=== PATIENT | male | born 1960 | race Caucasian/White ===

== ENCOUNTER 2024-05-26 08:40 | Inpatient (IN) ==
[2024-05-26] MEDS: 0.9 % SODIUM CHLORIDE 1,000 ML IV ONE (09:16)
[2024-05-26 09:43] LABS: ALT/SGPT < 5 U/L (<40); AST/SGOT 14 U/L (<40); Albumin/Globulin Ratio 1.1 (1.0-2.3); Alkaline Phosphatase 81 U/L (39-117); Bilirubin,Total 0.5 mg/dL (0.1-1.0); Blood Urea Nitrogen 22 mg/dL (8-23); Calcium 10.2 mg/dL (8.6-10.4); Carbon Dioxide 28 mmol/L (22-30); Chloride 97 mmol/L (96-108); Globulin 3.5 gm/dL (2.2-3.7); Glomerular Filtration Rate 78; Glucose 128 mg/dL (70-105); Potassium 3.5 mmol/L (3.3-5.1); Sodium 137 mmol/L (133-145)
[2024-05-26 09:44] LABS: Basophils # (Auto) 0.01 K/mcL (0.00-0.30); Basophils % (Auto) 0.1 % (0.0-2.0); Eosinophils # (Auto) 0.04 K/mcL (0.00-0.70); Eosinophils % (Auto) 0.4 % (0.0-7.0); Hematocrit 35.3 % (40.1-51.0); Hemoglobin 11.6 g/dL (13.7-17.5); Lymphocytes # (Auto) 1.04 K/mcL (1.50-4.80); Lymphocytes % (Auto) 11.2 % (15.5-49.0); Mean Cell Volume 90.3 fL (80.0-100.0); Mean Corpuscular HGB Conc 32.9 g/dL (31.0-36.0); Mean Platelet Volume 10.1 fL (8.8-12.5); Monocytes # (Auto) 0.47 K/mcL (0.10-0.90); Monocytes % (Auto) 5.1 % (1.0-12.0); Neutrophils % (Auto) 83.1 % (38.0-78.0); Platelet Count 377 K/mcL (140-440); RBC 3.91 M/mcL (4.63-6.08); Red Cell Distribution Width 13.9 % (11.5-14.5); WBC 9.3 K/mcL (4.5-11.0)
[2024-05-26] MEDS: HEPARIN 5,000 UNIT/ML VIAL IV ONE (10:12)
[2024-05-26] MEDS ORDERED: HEPARIN SOD,PORK IN 0.45% NACL 25,000 UNIT in PREMIX 1 BAG IV SCH (10:15)
[2024-05-26 10:30] LABS: Prothrombin Time 13.8 sec (11.9-14.5)
[2024-05-26] MEDS: cloNIDine HCL 0.1 MG TABLET PO SCH ×2 (11:20→12:14)
[2024-05-26 12:18] LABS: Appearance,Urine CLEAR (Clear); Bilirubin,Urine Negative (Negative); Color,Urine YELLOW; Culture Indicated,Urine No; Glucose,Urine (UA) Negative (Negative); Ketones,Urine Negative (Negative); Leukocyte Esterase,Urine Negative /uL (Negative); Mucus,Urine FEW /hpf; Nitrate,Urine Negative (Negative); Protein,Urine 100 mg/dL (Negative); Specific Gravity,Urine 1.012 (1.000-1.035); Urine Blood Negative (Negative); Urine RBC 0 /hpf (0-3); Urine Squamous Epithelial Cell 0 /hpf (0-4); Urine WBC 1 /hpf (0-4); Urobilinogen,Urine Negative
[2024-05-26] MEDS ORDERED: POTASSIUM CHLORIDE 20 MEQ TABLET PO PRN ×2 (15:43)
[2024-05-26] MEDS ORDERED: ACETAMINOPHEN 325 MG TABLET PO PRN (15:43)
[2024-05-26] MEDS ORDERED: MAGNESIUM SULFATE 2 GM/50 ML BAG IV PRN (15:43)
[2024-05-26] MEDS ORDERED: POLYETHYLENE GLYCOL 3350 17 GM PACKET PO PRN (15:43)
[2024-05-26] MEDS ORDERED: POTASSIUM CHLORIDE 40 MEQ in DEXTROSE 5% IN WATER 500 ML IV PRN (15:43)
[2024-05-26] MEDS ORDERED: ONDANSETRON 4 MG/2 ML VIAL IV PRN (15:43)
[2024-05-26] MEDS ORDERED: SENNOSIDES 1 TABLET PO PRN (15:43)
[2024-05-26] MEDS ORDERED: IPRATROPIUM/ALBUTEROL 3 ML AMPUL.NEB NEB PRN (15:43)
[2024-05-26 17:11] LABS: Amphetamine Screen,Urine None detected; Barbiturate Screen,Urine None detected; Cannabinoid Screen,Urine Suspect Positive; Cocaine Screen,Urine None detected; Opiate Screen,Urine None detected; Oxycodone, Urine Screen None detected; Phencyclidine Screen,Urine None detected
[2024-05-26] MEDS: PANTOPRAZOLE 40 MG VIAL IV SCH (17:28)
[2024-05-26] MEDS: niCARdipine 25 MG in 0.9 % SODIUM CHLORIDE 240 ML IV ONE (17:28)
[2024-05-26] MEDS: 0.9 % SODIUM CHLORIDE 10 ML SYRINGE IV SCH (20:27)
[2024-05-26] MEDS: DOCUSATE SODIUM 100 MG CAPSULE PO SCH (20:27)
[2024-05-26] MEDS: niCARdipine 25 MG in 0.9 % SODIUM CHLORIDE 240 ML IV SCH (22:31)
[2024-05-27 06:19] LABS: Basophils # (Auto) 0.02 K/mcL (0.00-0.30); Basophils % (Auto) 0.3 % (0.0-2.0); Eosinophils # (Auto) 0.12 K/mcL (0.00-0.70); Eosinophils % (Auto) 1.6 % (0.0-7.0); Hematocrit 31.2 % (40.1-51.0); Lymphocytes # (Auto) 1.73 K/mcL (1.50-4.80); Lymphocytes % (Auto) 22.6 % (15.5-49.0); Mean Cell Volume 91.5 fL (80.0-100.0); Mean Corpuscular HGB Conc 32.1 g/dL (31.0-36.0); Mean Platelet Volume 10.1 fL (8.8-12.5); Monocytes # (Auto) 0.39 K/mcL (0.10-0.90); Monocytes % (Auto) 5.1 % (1.0-12.0); Neutrophils % (Auto) 70.3 % (38.0-78.0); Platelet Count 307 K/mcL (140-440); RBC 3.41 M/mcL (4.63-6.08); WBC 7.7 K/mcL (4.5-11.0)
[2024-05-27 07:11] LABS: AST/SGOT 12 U/L (<40); Albumin 3.4 gm/dL (3.2-5.2); Albumin/Globulin Ratio 1.2 (1.0-2.3); Alkaline Phosphatase 66 U/L (39-117); Bilirubin,Direct < 0.2 mg/dL (0-0.3); Bilirubin,Total 0.3 mg/dL (0.1-1.0); Blood Urea Nitrogen 22 mg/dL (8-23); Calcium 9.2 mg/dL (8.6-10.4); Carbon Dioxide 26 mmol/L (22-30); Chloride 99 mmol/L (96-108); Globulin 2.9 gm/dL (2.2-3.7); Glomerular Filtration Rate 78; Glucose 100 mg/dL (70-105); Lactate Dehydrogenase 169 U/L (135-225); Phosphorous 2.8 mg/dL (2.5-4.5); Potassium 3.5 mmol/L (3.3-5.1); Sodium 135 mmol/L (133-145); Triglycerides 84 mg/dL (<150); Uric Acid 3.4 mg/dL (2.5-8.0)
[2024-05-27] MEDS: ENOXAPARIN 40 MG/0.4 ML SYRINGE SQ SCH (08:49)
[2024-05-27] MEDS: amLODIPine 5 MG TABLET PO SCH (09:17)
[2024-05-27] MEDS: ENALAPRILAT 1.25 MG/ML VIAL IV PRN (19:30)
[2024-05-27] MEDS: ENALAPRILAT 1.25 MG/ML VIAL IV ONE (20:20)
[2024-05-28] MEDS ORDERED: niCARdipine 25 MG in 0.9 % SODIUM CHLORIDE 240 ML IV SCH (07:25)
[2024-05-28] MEDS: LISINOPRIL 10 MG TABLET PO SCH (08:18)
[2024-05-29] MEDS: LISINOPRIL 20 MG TABLET PO SCH (08:14)
[2024-06-02 02:10] LABS: Alprazolam, Urine Negative (Cutoff=100); Clonazepam, Urine Negative (Cutoff=100); Flurazepam, Urine Negative (Cutoff=100); Lorazepam, Urine Negative (Cutoff=100); Midazolam, Urine Negative (Cutoff=100); Nordiazepam, Urine Negative (Cutoff=100); Oxazepam, Urine Negative (Cutoff=100); Temazepam, Urine Negative (Cutoff=100); Triazolam, Urine Negative (Cutoff=100)
== END 2024-05-29 14:11 | disposition home or self-care (01) | DRG 305 ==
LOC: ED 08:40 → ICU 15:35 → MEDSUR 05-28 16:20
PROVIDERS: ADMIT Internal Medicine; ATTEND Internal Medicine